=== PATIENT | female | born 1950 | race Hispanic/Latino ===

== ENCOUNTER 2018-10-09 06:18 | Day surgery (SDC) | payer OTHER ==
[~2018-10-09 06:18] MED LIST: ANCEF/STERILE WATER 2 GM/20 ML IV NR
[2018-10-09] MEDS ORDERED: NACL 0.9% 1000 ML 1,000 ML IV SCH (07:00)
[2018-10-09] MEDS ORDERED: DIPRIVAN 10 MG/ML IV ONE (07:33)
[2018-10-09] MEDS ORDERED: SUBLIMAZE ONE (07:34)
[2018-10-09] MEDS ORDERED: VERSED IV PRN (07:38)
[2018-10-09] MEDS ORDERED: DILAUDID IV PRN (07:40)
--- NOTE | 2018-10-09 07:45 | Anesthesia Consultation ---
Anesthesia Consult and Med Hx Date of service: 10/09/18 - Airway Anesthetic Teeth Evaluation: Partials ROM Head & Neck: Adequate Mental/Hyoid Distance: Adequate Mallampati Class: Class II Intubation Access Assessment: Probably Good (previous easy LMA 4) - Pulmonary Exam CTA: Yes - Cardiac Exam Cardiac Exam: RRR - Pre-Operative Health Status ASA Pre-Surgery Classification: ASA3 Proposed Anesthetic Plan: General - Pulmonary Hx Smoking: Yes (quit >30yrs ago) Hx Asthma: No Hx Respiratory Symptoms: No Hx Sleep Apnea: No - Cardiovascular System Hx Hypertension: Yes (no antihypertensives this morning) Hx Heart Attack/AMI: No Hx Percutaneous Transluminal Coronary Angioplasty (PTCA): No - Central Nervous System Hx Seizures: No CVA: No Hx Back Pain: Yes Hx Psychiatric Problems: No - Gastrointestinal Hx Gastroesophageal Reflux Disease: No - Endocrine Hx Renal Disease: No Hx Liver Disease: No Hx Non-Insulin Dependent Diabetes: Yes (diet controlled) Hx Thyroid Disease: No - Other Systems Hx Alcohol Use: Yes (Occas) Hx Cancer: Yes (breast ca) Hx Obesity: Yes - Additional Comments Anesthesia Medical History Comments: Hx mild PONV with previous anesthetics but none with most recent procedure earlier this month.
--- NOTE | 2018-10-09 07:45 | Anesthesia Day of Surgery ---
Anesthesia Day of Surgery - Day of Surgery Patient Examined: Yes Patient H&P Reviewed: Yes Patient is NPO: Yes
[2018-10-09] MEDS ORDERED: MARCAINE 0.25% INFILTRATI ONE ×3 (07:51→09:21)
[2018-10-09] MEDS ORDERED: XYLOCAINE 1% 20 mL ONE (07:51)
[2018-10-09] MEDS ORDERED: LACTATED RINGERS 1,000 ML IV SCH (08:00)
[2018-10-09] MEDS ORDERED: TORADOL ONE (08:06)
[2018-10-09] MEDS ORDERED: DECADRON ONE (08:06)
[2018-10-09] MEDS ORDERED: ZOFRAN ONE (08:06)
[2018-10-09] MEDS ORDERED: XYLOCAINE 1% 20 mL INFILTRATI ONE ×2 (09:21)
[2018-10-09] MEDS ORDERED: WATER FOR IRRIG STERILE IR ONE (09:23)
--- NOTE | 2018-10-09 09:32 | Operative Report ---
Operative Report Operative Report: Date of Service: October 09, 2018 Preoperative diagnosis:Left breast cancer of the upper outer quadrant Postoperative diagnosis:Same Procedure: Left breast margin revision Surgeon: Therese Botello MD Anesthesia: General Findings: Inferior and lateral margin revision Complications: None EBL: Minimal Disposition: PACU in good condition Indications for operative procedure: This is a 68 year old lady with newly diagnosed Stage I left breast cancer of the upper outer quadrant, pT1 cN0M0 ER/[place] positive. She recently underwent left needle localization partial mastecomy with SLND. Cephalad/inferior margin less than 1 mm from DCIS and lateral margin 1 mm from DCIS. Recommendations were to proceed with cephalad and lateral margin revision. Patient wished to proceed with the above procedure. Procedure in detail: The patient was taken to the operating room and was placed supine. General anesthesia was administered. The left breast was prepped and draped in the normal sterile operative fashion. Timeout was performed. Skin incision was made through the prior breast incision with a 15 blade knife. Subcutaneous tissues were opened with the aid of the Bovie cautery and knife. Seroma cavity was encountered and suctioned. Hemostasis was noted. Cephalad/inferior margin was then revised using the Bovie cautery followed by revision of the lateral margin. Specimen was marked and sent to pathology. Hemostasis was obtained with the Bovie cautery. Breast cavity was anesthetized with 1% lidocaine mixed with quarter percent Marcaine. The deep breast tissue was approximated and closed using interrupted 3-0 Vicryl and skin brought together and closed using a running 4-0 Monocryl followed by skin affix. She tolerated surgery very well and was awaken from anesthesia without any complications and transported to PACU in good condition.
--- NOTE | 2018-10-09 09:35 | Short Stay Summary ---
Short Stay Documentation Date of service: 10/09/18 - History H&P: obtained from office - Allergies and Medications Current Medications: Allergies No Known Allergies Allergy (Unverified 10/05/18 16:18) Home Medications Medication Instructions Recorded Confirmed Last Taken Type Aspirin [Adult Aspirin] 81 mg PO DAILY 09/13/18 10/05/18 09/18/18 History Cinnamon Bark [Cinnamon] 500 mg PO DAILY 09/13/18 10/05/18 09/26/18 15:00 History Losartan/Hydrochlorothiazide 1 tab PO DAILY 09/13/18 10/05/18 09/26/18 09:00 History Multivitamin [Multiple Vitamins] 1 each PO DAILY 09/13/18 10/05/18 09/26/18 15:00 History RX: Garlic 1,000 mg PO DAILY 09/13/18 10/05/18 09/26/18 15:00 History RX: Magnesium 200 mg PO DAILY 09/13/18 10/05/18 09/26/18 15:15 History RX: Potassium 99 mg PO DAILY 09/13/18 10/05/18 09/21/18 History RX: Pravastatin [Pravachol] 20 mg PO DAILY 09/13/18 10/05/18 09/26/18 09:00 History Ubidecarenone [Co Q-10] 50 mg PO DAILY 09/13/18 10/05/18 09/26/18 15:00 History Vitamin B Complex [Balanced B-50] 1 each PO DAILY 09/13/18 10/05/18 09/26/18 15:00 History HYDROcodone/APAP 5-325 [[place] 1 each PO Q6HR PRN #30 tablet 09/27/18 10/05/18 Unknown Rx 5/325] Active Medications Cefazolin Sodium (Ancef/Sterile Water 2 Gm/20 Ml) 2 gm IV PREOP NR Stop: 10/09/18 23:59 Hydromorphone HCl (Dilaudid) 0.5 mg IV Q10MIN PRN PRN Reason: Pain , Severe (7-10) Stop: 10/09/18 20:00 Sodium Chloride (Nacl 0.9% 1000 Ml) 1,000 mls @ 75 mls/hr IV DIRECT FREYA Last Admin: 10/09/18 06:48 Dose: 75 mls/hr Documented by: Lactated Ringer's (Lactated Ringers) 1,000 mls @ 100 mls/hr IV DIRECT FREYA Midazolam HCl (Versed) 2 mg IV PREOP PRN PRN Reason: Anesthesia Stop: 10/09/18 23:59 - Brief post op/procedure progress note Date of procedure: 10/09/18 Pre-op diagnosis: Left breast cancer of the upper outer quadrant Post-op diagnosis: same Procedure: Left breast inferior and lateral margin revision Anesthesia: GETA Findings: Left inferior and lateral margin revision Surgeon: LASHAY REID Estimated blood loss: minimal Pathology: list (margin revision) Specimen disposition: to lab Condition: stable - Disposition Condition at discharge: Good Disposition: DC- TO HOME OR SELFCARE Short Stay Discharge Plan Activity: other (no heavy lifting) Diet: regular Wound: keep clean and dry (may shower in 48 hours; no baths; wear breast binder) Follow up with: LINDA NOEL DO [Primary Care Provider] - 7 Days LASHAY REID MD [Staff Physician] - 7 Days Prescriptions: cephALEXin [Keflex] 500 mg PO Q12HR 7 Days #14 cap HYDROcodone/APAP 5-325 [[place] 5/325] 1 each PO Q6HR PRN #20 tablet PRN Reason: Pain
[2018-10-09] MEDS ORDERED: NORCO 5/325 ONE (10:09)
[2018-10-09] MEDS ORDERED: NORCO 5/325 PO PRN (10:30)
[2018-10-09 10:50] VITALS: BP 118/63
--- NOTE | 2018-10-09 12:10 | Post Anesthesia Evaluation ---
- Post Anesthesia Evaluation Patient Participated: Yes Airway Patent: Yes Stable Respiratory Function: Yes Nausea/Vomiting: No Temp > 96.8F: Yes Pain Manageable: Yes Adequeate Hydration: Yes Anesthesia Complications: No
== END 2018-10-09 06:19 | disposition home or self-care (01) ==
LOC: OR 06:18
PROVIDERS: ATTEND Surgery
DX: D05.12 Intraductal carcinoma in situ of left breast (principal); I10 Essential (primary) hypertension; E78.00 Pure hypercholesterolemia, unspecified; E11.9 Type 2 diabetes mellitus without complications; G43.909 Migraine, unspecified, not intractable, without status migrainosus; E66.9 Obesity, unspecified; Z68.34 Body mass index [BMI] 34.0-34.9, adult; Z79.82 Long term (current) use of aspirin; Z79.899 Other long term (current) drug therapy; Z90.710 Acquired absence of both cervix and uterus; Z87.891 Personal history of nicotine dependence; Z98.890 Other specified postprocedural states; Z80.3 Family history of malignant neoplasm of breast
CPT/HCPCS: 19301; 82962; 88307; J0690; J1100; J1885; J2250; J2405; J2704; J3010; J7030

== ENCOUNTER 2018-12-06 09:10 | Inpatient (IN) | payer MEDICARE ==
[~2018-12-06 09:10] MED LIST changes: +ANCEF/STERILE WATER 2 GM/20 ML 2 GM/20 ML SYRINGE IV NR; -ANCEF/STERILE WATER 2 GM/20 ML IV NR
[2018-12-06] MEDS ORDERED: LACTATED RINGERS 1,000 ML IV SCH ×2 (09:35→17:00)
[2018-12-06 10:10] LABS: Basophils % (Auto) 0.5 % (0.0-1.8); Eosinophils # (Auto) 0.2 K/mm3 (0.0-0.4); Eosinophils % (Auto) 2.9 % (0.0-4.3); Hematocrit 37.9 % (30.3-42.9); Hemoglobin 12.8 gm/dl (10.1-14.3); Lymphocytes # (Auto) 3.1 K/mm3 (1.2-5.4); Lymphocytes % (Auto) 42.4 % (13.4-35.0); Mean Corpuscular HGB Conc 34 % (30-34); Mean Corpuscular Volume 97 fl (79-97); Monocytes # (Auto) 0.7 K/mm3 (0.0-0.8); Monocytes % (Auto) 9.1 % (0.0-7.3); Platelet Count 238 K/mm3 (140-440); Red Blood Count 3.89 M/mm3 (3.65-5.03); Red Cell Distribution Width 13.3 % (13.2-15.2)
[2018-12-06 10:25] LABS: BUN/Creatinine Ratio 18; Blood Urea Nitrogen 14 mg/dL (7-17); Calcium 9.8 mg/dL (8.4-10.2); Hemolysis Index 10
[2018-12-06] MEDS ORDERED: VERSED ONE (10:36)
[2018-12-06] MEDS ORDERED: NEURONTIN ONE (10:37)
[2018-12-06] MEDS ORDERED: MARCAINE 0.25% INFILTRATI ONE (11:06)
--- NOTE | 2018-12-06 11:24 | Anesthesia Day of Surgery ---
Anesthesia Day of Surgery - Day of Surgery Patient Examined: Yes Patient H&P Reviewed: Yes Patient is NPO: Yes Beta Blockers: No Cardiac Clearance: No Pulmonary Clearance: No
--- NOTE | 2018-12-06 11:24 | Anesthesia Consultation ---
Anesthesia Consult and Med Hx Date of service: 12/06/18 - Airway Anesthetic Teeth Evaluation: Good ROM Head & Neck: Adequate Mental/Hyoid Distance: Adequate Mallampati Class: Class II Intubation Access Assessment: Probably Good - Pulmonary Exam CTA: Yes - Cardiac Exam Cardiac Exam: RRR - Pre-Operative Health Status ASA Pre-Surgery Classification: ASA2 Proposed Anesthetic Plan: General Nerve Block: Pecs 1 &2 - Pulmonary Hx Smoking: Yes (FROM TEENS TO HER 30'S) Hx Respiratory Symptoms: No - Cardiovascular System Hx Hypertension: Yes (2012) Hx Percutaneous Transluminal Coronary Angioplasty (PTCA): No - Central Nervous System Hx Back Pain: Yes Hx Psychiatric Problems: No - Gastrointestinal Hx Gastroesophageal Reflux Disease: No - Endocrine Hx Renal Disease: No Hx Insulin Dependent Diabetes: No Hx Non-Insulin Dependent Diabetes: Yes (diet controlled) Hx Thyroid Disease: No - Other Systems Hx Alcohol Use: Yes (Occas) Hx Substance Use: No Hx Cancer: Yes Hx Obesity: Yes
[2018-12-06] MEDS ORDERED: DILAUDID IV PRN (11:25)
[2018-12-06] MEDS ORDERED: TORADOL IV PRN (11:25)
[2018-12-06] MEDS ORDERED: VERSED IV NR (12:00)
[2018-12-06] MEDS ORDERED: NEURONTIN PO NR (12:00)
[2018-12-06] MEDS ORDERED: DIPRIVAN 10 MG/ML IV ONE ×2 (13:28→15:06)
[2018-12-06] MEDS ORDERED: ZOFRAN ONE (13:29)
[2018-12-06] MEDS ORDERED: DECADRON ONE (13:29)
[2018-12-06] MEDS ORDERED: SUBLIMAZE ONE (13:29)
[2018-12-06] MEDS ORDERED: WATER FOR IRRIG STERILE IR ONE (14:46)
[2018-12-06] MEDS ORDERED: DILAUDID ONE (15:09)
[2018-12-06] MEDS ORDERED: REGLAN PO PRN (16:55)
[2018-12-06] MEDS ORDERED: SODIUM CHLORIDE FLUSH SYRINGE 10 ML IV PRN (16:55)
[2018-12-06] MEDS ORDERED: BENADRYL PO PRN (16:55)
[2018-12-06] MEDS ORDERED: TYLENOL PO PRN (16:55)
[2018-12-06] MEDS ORDERED: PERCOCET 5/325 PO PRN (16:55)
[2018-12-06] MEDS ORDERED: ZOFRAN IV PRN (16:55)
[2018-12-06] MEDS ORDERED: MORPHINE IV PRN (16:58)
--- NOTE | 2018-12-06 21:53 | Short Stay Summary ---
Short Stay Documentation Date of service: 12/06/18 - History H&P: obtained from office - Allergies and Medications Current Medications: Allergies No Known Allergies Allergy (Verified 11/29/18 09:54) Home Medications Medication Instructions Recorded Confirmed Last Taken Type Aspirin [Adult Aspirin] 81 mg PO DAILY 09/13/18 12/06/18 11/27/18 History Cinnamon Bark [Cinnamon] 500 mg PO DAILY 09/13/18 12/06/18 12/05/18 History Multivitamin [Multiple Vitamins] 1 each PO DAILY 09/13/18 12/06/18 12/05/18 History RX: Garlic 1,000 mg PO DAILY 09/13/18 12/06/18 12/05/18 History RX: Magnesium 200 mg PO DAILY 09/13/18 12/06/18 12/05/18 History RX: Potassium 99 mg PO DAILY 09/13/18 12/06/18 12/05/18 History RX: Pravastatin [Pravachol] 20 mg PO DAILY 09/13/18 12/06/18 12/05/18 History Ubidecarenone [Co Q-10] 50 mg PO DAILY 09/13/18 12/06/18 12/05/18 History Vitamin B Complex [Balanced B-50] 1 each PO DAILY 09/13/18 12/06/18 12/05/18 History HYDROcodone/APAP 5-325 [[place] 1 each PO Q6HR PRN #30 tablet 09/27/18 11/29/18 10/08/18 21:00 Rx 5/325] HYDROcodone/APAP 5-325 [[place] 1 each PO Q6HR PRN #20 tablet 10/09/18 11/29/18 Unknown Rx 5/325] Anastrozole [Arimidex] 1 mg PO DAILY 11/29/18 12/06/18 12/05/18 History Olmesartan/Hydrochlorothiazide 1 each PO DAILY 11/29/18 12/06/18 12/05/18 History [Olmesartan-Hctz 40-25 mg Tab] Active Medications Acetaminophen (Tylenol) 650 mg PO Q6H PRN PRN Reason: Pain MILD(1-3)/Fever >100.5/VALLE Celecoxib (Celebrex) 200 mg PO PREOP NR Stop: 12/06/18 23:59 Diphenhydramine HCl (Benadryl) 25 mg PO Q8H PRN PRN Reason: Itching Docusate Sodium (Colace) 100 mg PO BID FREYA Gabapentin (Neurontin) 300 mg PO PREOP NR Stop: 12/06/18 23:59 Hydromorphone HCl (Dilaudid) 0.5 mg IV Q10MIN PRN PRN Reason: Pain , Severe (7-10) Lactated Ringer's (Lactated Ringers) 1,000 mls @ 100 mls/hr IV DIRECT FREYA Stop: 12/06/18 23:59 Last Admin: 12/06/18 10:00 Dose: 100 mls/hr Documented by: Lactated Ringer's (Lactated Ringers) 1,000 mls @ 125 mls/hr IV DIRECT FREYA Ketorolac Tromethamine (Toradol) 30 mg IV ONCE PRN PRN Reason: Pain, Moderate (4-6) Metoclopramide HCl (Reglan) 10 mg PO Q6H PRN PRN Reason: Nausea And Vomiting Midazolam HCl (Versed) 2 mg IV PREOP NR Stop: 12/06/18 23:59 Morphine Sulfate (Morphine) 2 mg IV Q4H PRN PRN Reason: Pain, Moderate (4-6) Ondansetron HCl (Zofran) 4 mg IV Q8H PRN PRN Reason: N/V unrelieved by Reglan Oxycodone/Acetaminophen (Percocet 5/325) 1 tab PO Q6H PRN PRN Reason: Pain, Moderate (4-6) Sodium Chloride (Sodium Chloride Flush Syringe 10 Ml) 10 ml IV PRN PRN PRN Reason: LINE FLUSH - Brief post op/procedure progress note Date of procedure: 12/06/18 Pre-op diagnosis: Left breast cancer of the upper inner quadrant Post-op diagnosis: same Procedure: Left total mastectomy Anesthesia: GETA Findings: Left total mastectomy Surgeon: LASHAY REID Estimated blood loss: 50-100ml Pathology: list (left mastectomy) Specimen disposition: to lab Condition: stable - Disposition Condition at discharge: Good Disposition: DC/TX-02 SHRT-[facility]M [facility] HOSP IP Short Stay Discharge Plan Activity: other (no heavy lifting) Diet: regular Wound: keep clean and dry (wear breast binder) Follow up with: LINDA NOEL DO [Primary Care Provider] - 7 Days LASHAY REID MD [Staff Physician] - 7 Days
[2018-12-06] MEDS ORDERED: COLACE PO SCH (22:00)
--- NOTE | 2018-12-06 22:05 | Operative Report ---
Operative Report Operative Report: Date of Service: December 06, 2018 Preoperative diagnosis: Left breast cancer of the upper outer quadrant Postoperative diagnosis: Same Procedure: Left total mastectomy Surgeon: Therese Botello M.D. Anesthesia: Gen. Findings: Left seroma cavity and scar from recent surgery noted Complications: None Drains: One 19 Fr GONZÁLEZ Estimated blood loss: Minimal Disposition: PACU in good condition Indications for operative procedure: This is a 68-year-old lady with newly diagnosed left breast cancer IDCA grade 3 of the upper outer quadrant, [id number] ER/[place] positive. On 09/27/2018 patient underwent a left partial mastectomy with sentinel node biopsy. 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 Recommendations were to proceed with left breast margin revision versus total mastectomy. Patient wished to attempt to proceed with a margin revision. On 10/09/18 she underwent left inferior and lateral margin revision. Pathology with left inferior margin revision with surgical margin negative for malignancy, small focus of low-grade DCIS 8 mm and 8 mm from surgical margin and additional findings of a papilloma, left lateral margin revised with positive margin positive for DCIS with 3 small foci identified, no invasive carcinoma. Recommendations are to proceed with a left total mastectomy given additional disease present from margin revision with positive margins. Patient agrees and declined plastic surgery at this time. Oncotype DX low risk for breast cancer recurrence. Procedure in detail: Anesthesia placed left pectoral muscle block prior to going to the operating room. The patient was taken to the operating room and was placed supine. Gen. anesthesia was administered. Bilateral breasts and left axilla was prepped and draped in the normal sterile operative fashion. Timeout was performed. Typical mastectomy incision marking was made, left mastectomy including prior incision. Attention was taken towards the left breast first. A skin incision was made with a 10 blade knife and dissection taken down to the subcutaneous tissues. First began raising of the superior flap to the level of the clavicle superiorly and posteriorly to the pectoralis muscle. Followed by raising of the medial flap to the level of the sternum and posteriorly to the pectoralis muscle. Followed by raising of the lateral flap to the level of the latissimus dorsi muscle and taken down posteriorly. Then proceeded with raising of the inferior flap to the level of the inframammary fold taken posterior to the pectoralis muscle. Seroma cavity and scar tissue was noted from recent surgery. The mastectomy/breast was removed from the pectoralis muscle without incident. The specimen was appropriately marked and sent to pathology. Hemostasis was noted. The chest wall was irrigated and suctioned. Hemostasis was obtained. One 19 [place] GONZÁLEZ drain was placed. The subcutaneous tissues were closed using an interrupted 3-0 Vicryl followed by closing of the skin using a running 4-0 Monocryl and dermabond. She tolerated surgery very well and was awaken from anesthesia and transported to PACU in good conidition.
--- NOTE | 2018-12-07 06:14 | Progress Note ---
Assessment and Plan This is a 68 year old lady POD#1 left total mastectomy for Stage I left breast cancer. 1. Patient with good pain control, she has no complaints of pain. 2. Physical exam with incision healing well, skin well perfused. 3. Patient with some concerns of her blood pressure being normal, explained typical post surgery and H/H stable. She's not to resume her bp meds at this time and she will check her bp tomorrow. 4. D/C planning. Subjective Date of service: 12/07/18 Principal diagnosis: Left breast cancer Interval history: POD #1 left total mastectomy Objective - Constitutional Vitals: Vital Signs - 12hr 12/06/12/06/18 12/07/18 18:25 21:10 02:23 Temperature 99.2 F 97.9 F 97.7 F Pulse Rate 96 H 89 86 Respiratory 16 18 20 Rate Blood Pressure 117/63 124/57 99/53 O2 Sat by Pulse 95 98 Oximetry General appearance: Present: no acute distress - EENT Eyes: PERRL ENT: hearing intact Ears: bilateral: normal - Neck Neck: supple - Respiratory Respiratory effort: normal Respiratory: bilateral: CTA - Breasts Breasts: other (left chest incision healing well; skin well perfused; no hematoma; GONZÁLEZ drain to bulb suction) - Cardiovascular Rhythm: regular Extremities: no ischemia, pulses intact, pulses symmetrical, No edema, normal temperature, normal color, Full ROM - Gastrointestinal General gastrointestinal: Present: soft, non-tender, non-distended Rectal Exam: deferred - Genitourinary Female genitourinary: deferred - Integumentary Integumentary: clear, warm, dry - Musculoskeletal Musculoskeletal: strength equal bilaterally - Neurologic Neurologic: CNII-XII intact - Psychiatric Psychiatric: appropriate mood/affect, intact judgment & insight, memory intact, cooperative - Labs CBC & Chem 7: 12/07/18 08:31 12/06/18 09:51 Labs: Abnormal lab results 12/06/18 12/06/18 Range/Units 09:51 17:20 MCH 33 H (28-32) pg Lymph % (Auto) 42.4 H (13.4-35.0) % [place] % (Auto) 9.1 H (0.0-7.3) % POC Glucose 118 H (70-105) Medications & Allergies - Medications Allergies/Adverse Reactions: Allergies No Known Allergies Allergy (Verified 11/29/18 09:54) Home Medications: Home Medications Medication Instructions Recorded Confirmed Last Taken Type Aspirin [Adult Aspirin] 81 mg PO DAILY 09/13/18 12/06/18 11/27/18 History Cinnamon Bark [Cinnamon] 500 mg PO DAILY 09/13/18 12/06/18 12/05/18 History Garlic 1,000 mg PO DAILY 09/13/18 12/06/18 12/05/18 History Magnesium 200 mg PO DAILY 09/13/18 12/06/18 12/05/18 History Multivitamin [Multiple Vitamins] 1 each PO DAILY 09/13/18 12/06/18 12/05/18 History Potassium 99 mg PO DAILY 09/13/18 12/06/18 12/05/18 History Pravastatin [Pravachol] 20 mg PO DAILY 09/13/18 12/06/18 12/05/18 History Ubidecarenone [Co Q-10] 50 mg PO DAILY 09/13/18 12/06/18 12/05/18 History Vitamin B Complex [Balanced B-50] 1 each PO DAILY 09/13/18 12/06/18 12/05/18 History HYDROcodone/APAP 5-325 [[place] 1 each PO Q6HR PRN #30 tablet 09/27/18 11/29/18 10/08/18 21:00 Rx 5/325] HYDROcodone/APAP 5-325 [[place] 1 each PO Q6HR PRN #20 tablet 10/09/18 11/29/18 Unknown Rx 5/325] Anastrozole [Arimidex] 1 mg PO DAILY 11/29/18 12/06/18 12/05/18 History Olmesartan/Hydrochlorothiazide 1 each PO DAILY 11/29/18 12/06/18 12/05/18 History [Olmesartan-Hctz 40-25 mg Tab] Active Medications: Generic Name Dose Route Start Last Admin Trade Name Freq PRN Reason Stop Dose Admin Acetaminophen 650 mg 12/06/18 16:55 Tylenol PO Q6H PRN Pain MILD(1-3)/Fever >100.5/VALLE Diphenhydramine HCl 25 mg 12/06/18 16:55 Benadryl PO Q8H PRN Itching Docusate Sodium 100 mg 12/06/18 22:00 Colace PO BID FREYA Hydromorphone HCl 0.5 mg 12/06/18 11:25 Dilaudid IV Q10MIN PRN Pain , Severe (7-10) Lactated Ringer's 1,000 mls @ 125 mls/hr 12/06/18 17:00 Lactated Ringers IV DIRECT FREYA Ketorolac Tromethamine 30 mg 12/06/18 11:25 Toradol IV ONCE PRN Pain, Moderate (4-6) Metoclopramide HCl 10 mg 12/06/18 16:55 Reglan PO Q6H PRN Nausea And Vomiting Morphine Sulfate 2 mg 12/06/18 16:58 Morphine IV Q4H PRN Pain, Moderate (4-6) Ondansetron HCl 4 mg 12/06/18 16:55 Zofran IV Q8H PRN N/V unrelieved by Reglan Oxycodone/Acetaminophen 1 tab 12/06/18 16:55 Percocet 5/325 PO Q6H PRN Pain, Moderate (4-6) Sodium Chloride 10 ml 12/06/18 16:55 Sodium Chloride Flush Syringe 10 Ml IV PRN PRN LINE FLUSH
[2018-12-07 09:36] LABS: Hematocrit 31.9 % (30.3-42.9); Hemoglobin 10.8 gm/dl (10.1-14.3)
[2018-12-07 17:50] VITALS: BP 122/54
== END 2018-12-07 15:05 | disposition home or self-care (01) | DRG 583 ==
LOC: OR 09:10 → OB 16:55
PROVIDERS: ADMIT Surgery; ATTEND Surgery
PROC: 0HTU0ZZ Resection of Left Breast, Open Approach (ICD-10-PCS; principal; 2018-12-06)
DX: C50.212 Malignant neoplasm of upper-inner quadrant of left female breast (principal); F17.210 Nicotine dependence, cigarettes, uncomplicated; I10 Essential (primary) hypertension; E11.9 Type 2 diabetes mellitus without complications; E66.9 Obesity, unspecified; Z68.33 Body mass index [BMI] 33.0-33.9, adult; Z79.82 Long term (current) use of aspirin
CPT/HCPCS: 36415; 64450; 80048; 82962; 85014; 85018; 85025; 88305; 88307; 88309; G0378; J0690; J1100; J1170; J2250; J2405; J2704; J3010; J7120

== ENCOUNTER 2019-02-22 08:42 | Outpatient (CLI) | payer MEDICARE ==
--- NOTE | 2019-02-22 14:47 | Mammography Report ---
BONE DENSITY STUDY: Postmenopausal/aromatase inhibitor. DEFINITIONS: BMD = Bone Mineral Density T-score = BMD related to mean peak bone mass of young adult (mean expressed in Standard Deviation) Z-score = Age matched BMD expressed in SD World Health Organization (WHO) Diagnostic Criteria Normal T-score > -1 SD Osteopenia T-score between -1 and -2.4 SD Osteoporosis T-score -2.5 SD or below FINDINGS: The weighted average BMD of lumbar spine L1-L4 is 1.190 with a T-score of 0.4. The BMD of L1-L3 is 1.105 with a T. value score of -0.1. The weighted average BMD of the left hip is 0.983 with a T-score of -0.3. The femoral neck BMD 0.727 with a T. value score of -1.6. Comparison is made to an outside report in December 2016. Comparison with different machines however can be inaccurate. The L1-L4 T. value scores are generally the same with slight improvement in our BMD measurement. The overall left hip T. value score and BMD of our exam is improved however the femoral neck BMD was not included on prior report for comparison. IMPRESSION: The patient's average T-score is diagnostic for normal bone density and low relative risk for fracture. NOTE: BMD is not the only risk factor for fracture; also consider factors such as the patient's age, risk of falling, previous osteoporotic fracture, family history of osteoporotic fractures, current smoker, and low body weight. Monet's triangle is a region of interest in femur, predominantly of trabecular bone. It is not a true anatomic site, and [facility] does not recommend its use clinically.
== END 2019-02-22 08:43 | disposition home or self-care (01) ==
LOC: SPVWC 08:42
PROVIDERS: ATTEND Internal Medicine Hematology & Oncology
DX: C50.412 Malignant neoplasm of upper-outer quadrant of left female breast (principal); N95.9 Unspecified menopausal and perimenopausal disorder; E78.00 Pure hypercholesterolemia, unspecified; I10 Essential (primary) hypertension; E66.9 Obesity, unspecified; E11.9 Type 2 diabetes mellitus without complications; Z79.811 Long term (current) use of aromatase inhibitors
CPT/HCPCS: 77080

== ENCOUNTER 2020-08-14 08:51 | Outpatient (CLI) | payer MEDICARE ==
--- NOTE | 2020-08-14 09:34 | Mammography Report ---
DIGITAL SCREENING MAMMOGRAM WITH CAD, 08/14/2020 INDICATION: Routine screening mammography. The patient has a personal history of left breast cancer t reated with mastectomy. TECHNIQUE: Digital right 2D mammography was obtained in the craniocaudal and mediolateral oblique pr ojections. This examination was interpreted with the benefit of Computer-Aided Detection analysis. COMPARISON: 07/26/2019, 07/14/2018, 07/14/2017 FINDINGS: Breast Density: There are scattered fibroglandular elements. There is no evidence of dominant mass, suspicious calcifications or architectural distortion in the r ight breast. IMPRESSION: Follow up recommendation: Routine yearly BI-RADS Category 1: Negative. A "normal" or negative report should not discourage follow up or biopsy of a clinically significant f inding. A written summary of these findings will be mailed to the patient. The patient will be entered into a mammography reporting system which will generate a reminder letter for the patient's next appointmen t at the appropriate interval. The [employer] recommends yearly mammograms starting at age 40 and continuing as l rachael as a woman is in good health. Breast MRI is recommended for women with an approximate 20-25% or greater lifetime risk of breast cancer, including women with a strong family history of breast or ova karely cancer or who have been treated for Hodgkin's disease. Signer Name: Sandy Rodriguez MD Signed: 08/14/2020 9:30 AM Workstation Name: [id number]
== END 2020-08-14 08:52 | disposition home or self-care (01) ==
LOC: SPVWC 08:51
PROVIDERS: ATTEND Surgery
DX: Z12.31 Encounter for screening mammogram for malignant neoplasm of breast (principal); N64.89 Other specified disorders of breast

== ENCOUNTER 2021-08-17 07:56 | Outpatient (CLI) | payer MEDICARE ==
--- NOTE | 2021-08-17 15:41 | Mammography Report ---
DIGITAL SCREENING MAMMOGRAM WITH CAD, 08/17/2021 CLINICAL INFORMATION / INDICATION: Routine screening mammography. Personal history of breast cancer o n the left. TECHNIQUE: Digital right 2D mammography was obtained in the craniocaudal and mediolateral oblique pr ojections. This examination was interpreted with the benefit of Computer-Aided Detection analysis. COMPARISON: 08/14/2020, 07/26/2019 FINDINGS: Breast Density: There are scattered areas of fibroglandular density. No dominant mass, suspicious calcifications, or architectural distortion in either breast. IMPRESSION: No mammographic evidence of malignancy. Follow up recommendation: Routine yearly BI-RADS Category 1: Negative. A "normal" or negative report should not discourage follow up or biopsy of a clinically significant f inding. A written summary of these findings will be mailed to the patient. The patient will be entered into a mammography reporting system which will generate a reminder letter for the patient's next appointmen t at the appropriate interval. The [employer] recommends yearly mammograms starting at age 40 and continuing as l rachael as a woman is in good health. Breast MRI is recommended for women with an approximate 20-25% or greater lifetime risk of breast cancer, including women with a strong family history of breast or ova karely cancer or who have been treated for Hodgkin's disease. Signer Name: Eamon Castillo MD Signed: 08/17/2021 3:37 PM Workstation Name: [email or web address]
== END 2021-08-17 07:57 | disposition home or self-care (01) ==
LOC: SPVWC 07:56
PROVIDERS: ATTEND Internal Medicine
DX: Z12.31 Encounter for screening mammogram for malignant neoplasm of breast (principal)

== ENCOUNTER 2022-05-11 08:18 | Outpatient (CLI) | payer MEDICARE ==
--- NOTE | 2022-05-11 11:16 | Mammography Report ---
DEXA BONE DENSITY SCAN INDICATION / CLINICAL INFORMATION: BREAST CANCER. 72 years Female COMPARISON: 02/22/2019 LUMBAR SPINE, L1-L3: - Bone mineral density (BMD) = 1.104 g/cm2. - T-score = -0.1 - Change (%) since most recent prior (if available): 0.1% decrease LEFT HIP, NECK : - Bone mineral density (BMD) = 0.715 g/cm2. - T-score = -1.7 - Change (%) since most recent prior (if available): 1.6% decrease at the femoral neck. 4.8% decreas e for the total hip. IMPRESSION: 1. WHO Classification: Osteopenia. Fracture Risk: Increased. Note: 10-Year Fracture Risk (FRAX) not reported. This DEXA unit lacks FRAX functionality. BMD Reporting Guidelines (ISCD, 2015) BMD Reporting in Postmenopausal Women and in Men Age 50 and Older - T-scores are preferred. - The WHO densitometric classification is applicable. BMD Reporting in Females Prior to Menopause and in Males Younger Than Age 50 - Z-scores, not T-scores, are preferred. This is particularly important in children. - A Z-score of -2.0 or lower is defined as below the expected range for age, and a Z-score above -2.0 is within the expected range for age. - Osteoporosis cannot be diagnosed in men under age 50 on the basis of BMD alone. - The WHO diagnostic criteria may be applied to women in the menopausal transition. http://www.iscd.org/official-positions/5254-jfjx-bopsjyyw-positions-adult/ Signer Name: Eamon Castillo MD Signed: 05/11/2022 11:12 AM Workstation Name: [id number]
== END 2022-05-11 08:19 | disposition home or self-care (01) ==
LOC: SPVWC 08:18
PROVIDERS: ATTEND Internal Medicine Hematology & Oncology
DX: C50.412 Malignant neoplasm of upper-outer quadrant of left female breast (principal); M85.88 Other specified disorders of bone density and structure, other site; Z79.811 Long term (current) use of aromatase inhibitors; E83.52 Hypercalcemia
CPT/HCPCS: 77080